=== PATIENT | female | born 1965 | race Asian ===

== ENCOUNTER 2024-05-07 05:02 | Emergency (ER) | payer OTHER, SELFPAY ==
[2024-05-07] VITALS (7 sets, daily range): BP systolic 102–148; BP diastolic 68–86; BMI 34.8
[2024-05-07 05:36] LABS: % Basophils 0.4 % (0-2); % Eosinophils 1.7 % (0-6); % Immature Granulocytes 0.5 % (0-0.5); % Lymphocytes 24.8 % (20.5-51.1); % Neutrophils 66.6 % (42.2-75.2); Absolute Eosinophils 0.2 10^3/uL (0-0.7); Absolute Immature Granulocytes 0.1 10^3/uL (0-0.05); Absolute Lymphocytes 2.5 10^3/uL (1.2-3.4); Absolute Monocytes 0.6 10^3/uL (0.1-0.6); Absolute Neutrophils 6.7 10^3/uL (1.4-6.5); Hematocrit 41.3 % (37.0-47.0); Hemoglobin 13.7 g/dL (12.0-16.0); Mean Corp Hgb Conc. 33.2 g/dL (33.0-37.0); Mean Corpuscular Hgb 25.1 pg (27.0-31.0); Mean Corpuscular Volume 75.8 fL (81.0-99.0); Mean Platelet Volume 11.4 fL (7.4-10.4); Nucleated Red Blood Cells % 0 %; Platelet Count 233 10^3/uL (130-400); Red Blood Cell Count 5.45 10^6/uL (4.20-5.40); Red Cell Dist. Width 14.6 % (11.5-14.5)
[2024-05-07 05:52] LABS: ALT (SGPT) 23 U/L (0-35); AST (SGOT) 22 U/L (14-36); Albumin 4.9 g/dl (3.5-5.0); Alkaline Phosphatase 94 U/L (38-126); Blood Urea Nitrogen 9 mg/dl (7-17); Calcium 10.6 mg/dl (8.4-10.2); Carbon Dioxide 27 mmol/L (22-30); Chloride 103 mmol/L (98-107); Estimated Creatinine Clearance 100 ml/min; Glucose 118 mg/dl (70-99); Sodium 144 mmol/L (135-145); Total Bilirubin 0.5 mg/dl (0.2-1.3); Total Protein 8.5 g/dl (6.3-8.2); eGFR > 60.00
[2024-05-07 06:03] LABS: Troponin I < 0.012 ng/ml
--- NOTE | 2024-05-07 06:21 | ED.GENMED ---
History of Present Illness
General
Chief Complaint: Chest Pain
Time Seen by Provider: 05/07/24 06:21
History of Present Illness
History of Present Illness:
TIME OF INITIAL ENCOUNTER: 6:20 AM
HPI:
Patient presents with an abnormal sensation of the left side of her chest. She cannot describe this anymore but also has a sensation of palpitations and 'racing heart'. She has an associated headache described as 'burning'. She has a history of
CAD with stents.
EXAM:
GENERAL: Well appearing in no distress
HEENT: Moist oral mucosa
CARDIOVASCULAR: No murmurs, normal heart rate, regular rhythm, very mild left-sided anterior chest wall tenderness
PULMONARY: No respiratory distress, breath sounds are clear and equal
ABDOMEN: Soft with no peritoneal signs, no tenderness
NEUROLOGIC: Excellent strength all extremities, no coordination deficits
PSYCHIATRIC: Appropriate mental status, normal insight and judgement
EXTREMITIES: Nontender, no edema, moves all extremities equally
SKIN: No rash, no lesions
NUMBER AND COMPLEXITY OF PROBLEMS ADDRESSED AT THE ENCOUNTER
� Chronic conditions affecting care: CAD, high blood pressure
� Acute Exacerbation and/or Progression of Chronic Illness: This is an acute problem
� Differential Diagnosis includes: Nonspecific palpitations, PACs, PVCs, ACS, chest wall pain
AMOUNT AND/OR COMPLEXITY OF DATA TO BE REVIEWED AND ANALYZED
� I performed an independent evaluation of and my interpretation is:
EKG: Sinus 66, left axis deviation, nonspecific ST abnormality, LAD
CT:
X-rays: Chest x-ray unremarkable
Laboratory Studies: Troponin less than 0.012, CBC unremarkable, chemistries relatively unremarkable
Other:
� Review of other/old records: The patient was seen here in 2020 with cervical strain
� Clinical information was obtained by an independent historian: None needed
� Prescriptions/Medications Considered but not given:
� Further testing considered but not performed:
RISK OF COMPLICATIONS AND/OR MORBIDITY OR MORTALITY OF PATIENT MANAGEMENT
� Social determinants of health affecting care: Lives at home
� Discussion with other providers:
� Escalation of care including admission/observation vs risk of discharge considered: The patient has some vague symptoms of the left side of her chest which is currently improved. She has some burning sensation of the head.
Will try Toradol for pain. Initial troponin and EKG unremarkable. She cannot clearly indicate if her symptoms were similar to prior.
ANY OTHER UPDATES:
10 AM: Second troponin also negative, chest x-ray unremarkable. Overall feels improved. No clear indication for admission to the hospital.
Past History
Past History
ED Past Medical History: HTN
Social History
Tobacco: Non-smoker
Personal:
Living: with family
Phy Exam
Physical Exam
Physical Exam:
See HPI
Scores
Heart Score for Chest Pain Patients
STEMI patient?: Not applicable
Course
Orders/Labs/Results
Orders:
Orders
05/07/24 05:08
Electrocardiogram (*1) Urgent
Reason for Study: Chest Pain
05/07/24 05:09
EKG- Treatment ONCE
05/07/24 05:22
Complete Blood Count/With Diff Urgent
Comprehensive Metabolic Panel Urgent
Troponin I Urgent
05/07/24 06:36
Ketorolac [Toradol] 15 mg IV NOW STA
05/07/24 06:38
CR Chest - 2 Views Urgent
Comment:
Reason For Exam: L pain
05/07/24 08:35
Troponin I Urgent
05/07/24 08:36
EKG [Electrocardiogram (*1)] Urgent
Reason for Study: Chest Pain
EKG- Treatment ONCE
Abnormal Lab Results
05/07/24
05:22
RBC 5.45 H 10^6/uL
(4.20-5.40)
MCV 75.8 L fL
(81.0-99.0)
MCH 25.1 L pg
(27.0-31.0)
RDW 14.6 H %
(11.5-14.5)
MPV 11.4 H fL
(7.4-10.4)
Abs Immat Gran (auto) 0.1 H 10^3/uL
(0-0.05)
Absolute Neuts (auto) 6.7 H 10^3/uL
(1.4-6.5)
Creatinine 0.5 L mg/dL
(0.6-1.0)
Glucose 118 H mg/dl
(70-99)
Calcium 10.6 H mg/dl
(8.4-10.2)
Total Protein 8.5 H g/dl
(6.3-8.2)
05/07/24 05:22
05/07/24 05:22
Vital Signs
Initial and Last Documented VS:
Initial Vital Signs
Temp Pulse Resp BP Pulse Ox
97.5 F 70 22 148/86 98
05/07/24 05:05 05/07/24 05:05 05/07/24 05:05 05/07/24 05:05 05/07/24 05:05
Last Documented Vital Signs
Temp Pulse Resp BP Pulse Ox
97.5 F 70 16 107/72 95
05/07/24 05:05 05/07/24 08:00 05/07/24 08:00 05/07/24 08:00 05/07/24 08:00
*Critical Care Note
Total Time (30-74mins, 75-104mins- exclusive of procedures): Not Applicable
ED Attending Note
-
Portions of this chart may have been created with voice recognition software.� Occasional wrong word or��sound alike� substitutions may have occurred due to the inherent limitations of voice recognition software.
Discharge Plan
Departure
Prescriptions:
No Action
amlodipine 10 MG tablet
10 mg PO DAILY
losartan 100 MG tablet
100 mg PO DAILY
cyclobenzaprine 10 MG tablet
10 mg PO TIDPRN PRN (Reason: neck pain) Qty: 13 0RF
Referrals:
TAHIR QUEZADA PA [Family Provider] -
Interventions
Interventions:
*Risk Screen - Suicide Last Done: 05/07/24 05:43
*General Assessment Last Done: 05/07/24 05:43
*Neglect/Abuse Screening Last Done: 05/07/24 05:43
*ED COVID-19 Vaccine History Last Done: 05/07/24 05:43
ED- Cardiac Assessment Last Done: 05/07/24 05:23
Discharge Date and Time
Print Language: GUAMANIAN
[2024-05-07] MEDS: TORADOL 15 MG IV (06:40)
[2024-05-07 09:07] LABS: Troponin I < 0.012 ng/ml
== END 2024-05-07 10:36 | disposition home or self-care (01) ==
LOC: EMR 05:02
PROVIDERS: Emergency Medicine; EMERGENCY PHYSICIAN Emergency Medicine; FAMILY PHYSICIAN Physician Assistant
DX: R07.89 Other chest pain (principal); I10 Essential (primary) hypertension; I25.10 Atherosclerotic heart disease of native coronary artery without angina pectoris; Z95.5 Presence of coronary angioplasty implant and graft
CPT/HCPCS: 99283; 96374; 71046; 80053; 84484; 85025; 93005

== ENCOUNTER 2024-12-25 00:29 | Emergency (ER) | payer OTHER, SELFPAY ==
[2024-12-25 00:35] VITALS: BP 145/87
[2024-12-25] MEDS: TYLENOL 1000 MG PO (00:52)
[2024-12-25 00:53] VITALS: BMI 30.4
[2024-12-25 00:57] VITALS: BP 153/93
[2024-12-25 02:48] VITALS: BP 120/83
--- NOTE | 2024-12-25 04:30 | DOWNTIME ---
Addendum entered by Korina Mrarufo RN 12/25/24 15:34:
Correction: Downtime was 12/25/2024 from 0100 to 12/25/2024 at 0415.
Original Note:
There was a [employer] Downtime on 12/24/2024 from 0100 to 12/25/2024 at 0415. Downtime documentation of patient's care, including medication administrations, has been reconciled in the electronic record per guidelines. Refer to the
patient's paper chart under the miscellaneous tab to see printed paper medication records and downtime forms.
[2024-12-25 05:08] LABS: ALT (SGPT) 19 U/L (0-35); AST (SGOT) 17 U/L (14-36); Albumin 4.6 g/dl (3.5-5.0); Alkaline Phosphatase 89 U/L (38-126); Blood Urea Nitrogen 10 mg/dl (7-17); Calcium 9.7 mg/dl (8.4-10.2); Carbon Dioxide 25 mmol/L (22-30); Chloride 110 mmol/L (98-107); Estimated Creatinine Clearance 107 ml/min; Glucose 101 mg/dl (70-99); Potassium 4.1 mmol/L (3.5-5.1); Sodium 144 mmol/L (135-145); Total Bilirubin 0.4 mg/dl (0.2-1.3); Total Protein 8.3 g/dl (6.3-8.2); Troponin I < 0.012 ng/ml; eGFR > 60.00
[2024-12-25 05:25] LABS: % Basophils 0.4 % (0-2); % Eosinophils 2.2 % (0-6); % Immature Granulocytes 0.1 % (0-0.5); % Lymphocytes 37.1 % (20.5-51.1); % Monocytes 7.3 % (1.7-9.3); % Neutrophils 52.9 % (42.2-75.2); Absolute Eosinophils 0.2 10^3/uL (0-0.7); Absolute Lymphocytes 2.5 10^3/uL (1.2-3.4); Absolute Monocytes 0.5 10^3/uL (0.1-0.6); Absolute Neutrophils 3.5 10^3/uL (1.4-6.5); Hematocrit 42.2 % (37.0-47.0); Hemoglobin 13.9 g/dL (12.0-16.0); Mean Corp Hgb Conc. 32.9 g/dL (33.0-37.0); Mean Corpuscular Hgb 25.8 pg (27.0-31.0); Mean Corpuscular Volume 78.4 fL (81.0-99.0); Mean Platelet Volume 10.3 fL (7.4-10.4); Nucleated Red Blood Cells % 0 %; Platelet Count 193 10^3/uL (130-400); Red Blood Cell Count 5.38 10^6/uL (4.20-5.40); Red Cell Dist. Width 13.7 % (11.5-14.5); White Blood Cell Count 6.7 10^3/uL (4.8-10.8)
[2024-12-25 05:26] LABS: Urine Albumin Negative (Neg - Trace); Urine Character Clear (Clear); Urine Color Straw; Urine Glucose Negative (Negative); Urine Ketone Negative (Negative); Urine Leukocyte Negative (Negative); Urine Nitrite Negative (Negative)
[2024-12-25 05:27] LABS: Urine Bilirubin Negative (Negative); Urine Occult Blood Negative (Negative); Urine Urobilinogen Negative (Neg - 1+)
--- NOTE | 2024-12-26 06:02 | ED.GENMED ---
History of Present Illness
General
Chief Complaint: Musculo-Skeletal Complaint
Source: patient and family
Exam Limitations: none
Time Seen by Provider: 12/25/24 00:45
Nursing documentation reviewed up to this point in time: agreed with
History of Present Illness
History of Present Illness:
59-year-old female with history as noted presents to the ER for evaluation of hypertension and various minor complaints. �Patient reports that her blood pressure has been elevated throughout the day 140s to 160s systolic. �She says this is the
primary reason she came to the emergency room. �She is on amlodipine 10 mg daily and has been on this for quite some time without any recent adjustments. �She says she has had some various aches and pains over the past 48 hours including some pain
in the left shoulder, occasional headache as well as some flank pain radiating towards the hip. �She says her symptoms are very mild right now and she is mainly concerned about her blood pressure. �She has not had any nausea, vomiting, abdominal
pain. �Denies any chest pain or shortness of breath. �She denies any urinary symptoms. �She denies any other acute complaints.
Past History
Past History
ED Past Medical History: HTN
Social History
Tobacco: Non-smoker
Personal:
Living: with family
Review of Systems
Review of Systems
All Other Systems: ROS reviewed and negative except as documented in HPI and ROS
Respiratory: Denies trouble breathing
Cardiac: Denies chest pain
ABD/GI: Denies abdominal pain, nausea, vomiting or diarrhea
: Reports flank pain; Denies dysuria or frequency
Musculoskeletal: Reports joint pain; Denies neck pain or back pain
Neurological: Reports headache; Denies dizzy, weakness or numbness
Phy Exam
Physical Exam
Physical Exam:
General: Awake, alert, nontoxic
Head: Normocephalic, atraumatic
Eyes: Conjunctiva normal, sclera anicteric
Throat: Airway intact, handling secretions
Neck: Trachea midline, supple without meningismus
Lungs: Clear to auscultation bilaterally, no wheezing, rales, rhonchi
Heart: Regular rate and rhythm, no murmurs, gallops, or rubs
Abd: Soft, non distended, nontender
Back: No reproducible tenderness in the back or flank
Neuro: No gross deficits
Extremities: No edema in extremities, equal pulses in all extremities
Scores
Heart Failure Risk
Heart Failure Risk Score: Not Applicable
Heart Score for Chest Pain Patients
STEMI patient?: Not applicable
Withdrawal Assessment of Alcohol
Withdrawal Assessment Completed?: Not applicable
Course
Orders/Labs/Results
Orders:
Orders
12/25/24 00:46
Acetaminophen [Tylenol] 1,000 mg PO NOW STA
Ketorolac [Toradol] 30 mg IM NOW STA
Lidocaine [Lidocaine 4% Patch] 1 patch TOPICAL ONCE ONE
Apply Lidocaine patch(s) to:: back
12/25/24 01:02
Electrocardiogram (*1) Urgent
Reason for Study: Chest Pain
EKG- Treatment ONCE
CR Chest - 2 Views Urgent
Comment:
Reason For Exam: chest pain
12/25/24 01:11
Complete Blood Count/With Diff Urgent
Comprehensive Metabolic Panel Urgent
Troponin I Urgent
Urinalysis Urgent
Abnormal Lab Results
12/25/24
01:11
MCV 78.4 L fL
(81.0-99.0)
MCH 25.8 L pg
(27.0-31.0)
MCHC 32.9 L g/dL
(33.0-37.0)
Chloride 110 H mmol/L
(98-107)
Creatinine 0.5 L mg/dL
(0.6-1.0)
Glucose 101 H mg/dl
(70-99)
Total Protein 8.3 H g/dl
(6.3-8.2)
12/25/24 01:11
12/25/24 01:11
Vital Signs
Initial and Last Documented VS:
Initial Vital Signs
Temp Pulse Resp BP Pulse Ox
36.9 C 80 16 145/87 98
12/25/24 00:35 12/25/24 00:35 12/25/24 00:35 12/25/24 00:35 12/25/24 00:35
Last Documented Vital Signs
Temp Pulse Resp BP Pulse Ox
36.9 C 82 18 120/83 99
12/25/24 00:35 12/25/24 02:09 12/25/24 02:09 12/25/24 02:48 12/25/24 01:15
MDM/Problems Addressed
Differential Diagnosis Includes:
Hypertension
MDM/Problems Addressed:
59-year-old female presents with hypertension despite compliance with her home amlodipine. �Her blood pressure is 150s to 160s here. �She has had various aches and pains as described with no other specific complaints. �Will plan to check basic
screening labs. �Will check cardiogram and troponin given her report of mild left shoulder pain. �Check urinalysis given her reported flank pain. �Abdomen nontender�no indication for emergent abdominal imaging. �Although she reports occasional
headache, denies at present and with reassuring neurologic assessment in my judgment there is no indication for emergent CT head. �Will monitor blood pressure here and reassess after the above. �Can likely be discharged with adjustment to her blood
pressure medication regimen and close primary care follow-up.
Labs reviewed: CBC unremarkable, CMP no clinically significant abnormalities�notably normal renal function. �Her troponin is undetectable. �Urinalysis bland. �Blood pressure remains elevated throughout 150s. �Plan to add lisinopril to her current
regimen. �Stable for discharge to follow-up with her primary doctor. �Patient comfortable with this plan. �All questions answered.
Chronic conditions affecting care: HTN
*Pulse Oximetry
SaO2: 99
Oxygen Mode of Delivery: Room air
Patient hypoxic: no (98%)
*EKG
Interpreted by ED Provider?: Yes
Heart Rate: 78
Rate: normal
Rhythm: sinus
[place]: normal axis
Interval: normal interval
QRS Pattern: normal QRS
Ischemia: no ischemia
*Critical Care Note
Total Time (30-74mins, 75-104mins- exclusive of procedures): Not Applicable
Data Reviewed
Source: patient and family
ED Attending Note
-
Portions of this chart may have been created with voice recognition software.� Occasional wrong word or��sound alike� substitutions may have occurred due to the inherent limitations of voice recognition software.
Discharge Plan
Departure
Patient Disposition: Home (Routine Discharge)
Patient with high blood pressure during this ER visit?: Yes
Discharge Problem:
Hypertension
Prescriptions:
No Action
amlodipine 10 MG tablet
10 mg PO DAILY
losartan 100 MG tablet
100 mg PO DAILY
cyclobenzaprine 10 MG tablet
10 mg PO TIDPRN PRN (Reason: neck pain) Qty: 13 0RF
Referrals:
TAHIR QUEZADA PA [Family Provider, Family Practice]
Interventions
Interventions:
*Risk Screen - Suicide Last Done: 12/25/24 00:35
*General Assessment Last Done: 12/25/24 00:45
*Neglect/Abuse Screening Last Done: 12/25/24 00:35
*ED- Fall Risk Assessment Last Done: 12/25/24 00:45
*ED COVID-19 Vaccine History Last Done: 12/25/24 00:45
*Nursing Disposition Last Done: 12/25/24 03:02
ED-Musculoskeletal Assessment Last Done: 12/25/24 00:53
Discharge Date and Time
Discharge Date/Time: 12/25/24 03:05
Print Language: ICELANDIC
== END 2024-12-25 03:05 | disposition home or self-care (01) ==
LOC: EMR 00:29
PROVIDERS: EMERGENCY PHYSICIAN Emergency Medicine; FAMILY PHYSICIAN Physician Assistant
DX: I10 Essential (primary) hypertension (principal); Z79.899 Other long term (current) drug therapy
CPT/HCPCS: 99283; 71046; 80053; 81003; 84484; 85025; 93005

== ENCOUNTER 2025-01-01 05:57 | Emergency (ER) | payer OTHER, SELFPAY ==
[2025-01-01] VITALS (10 sets, daily range): BP systolic 113–142; BP diastolic 76–89
--- NOTE | 2025-01-01 06:39 | ED.GENMED ---
History of Present Illness
General
Chief Complaint: Cardiac Symptoms
Source: patient
Exam Limitations: none
Time Seen by Provider: 01/01/25 06:30
History of Present Illness
History of Present Illness:
59yoF with a history of hypertension presenting for evaluation of palpitations. Symptoms woke her up around 3am this morning. She reports feeling like her heart is racing. She also was experiencing a tightness/burning sensation to her left
shoulder and left side of her head. Symptoms have improved but are still present. She feels slightly short of breath. She denies any chest pain, dizziness, syncope. Of note, she was seen in the ED 6 days ago for hypertension. EKG and troponin
were normal at that time. Patient reports having a heart procedure 3-4 years ago in which a stent was placed although she does not take a statin or aspirin. She follows with [facility].
Past History
Past History
ED Past Medical History: HTN
Social History
Tobacco: Non-smoker
Personal:
Living: with family
Phy Exam
General Physical Exam
General Presentation: well appearing and no apparent distress
General Skin: warm and dry
General Habitus: normal
General Mental: alert
ENT Exam
ENT Exam: normocephalic
Cardiovascular Exam
Cardiovascular Exam: regular rate/rhythm, no edema, no murmur and normal peripheral pulses
Pulmonary Exam
Pulmonary Exam: lungs clear, no respiratory distress, no rales, no crackles, no rhonchi and no wheezing
Neurological Exam
Neurological Exam: alert
[place] Coma Scale
Eye Opening: Spontaneous
Verbal Response: Oriented
Motor Response: Obeys Commands
GCS Total Score: 15
Skin Exam
Skin Exam: normal color and warm/dry
Psychiatric Exam
Psychiatric Exam: normal mood/affect
Course
Orders/Labs/Results
Orders:
Orders
01/01/25 06:12
EKG [Electrocardiogram (*1)] Urgent
Reason for Study: Palpitations
EKG- Treatment ONCE
01/01/25 06:48
Cardiac Monitoring- Treatment ONCE
CR Chest - 2 Views Urgent
Comment:
Reason For Exam: SOB
01/01/25 07:06
Complete Blood Count/With Diff Urgent
TSH Reflex To Free T4 Urgent
01/01/25 08:16
Comprehensive Metabolic Panel Routine
Magnesium Routine
Troponin I Routine
01/01/25 09:08
EKG- Treatment ONCE
01/01/25 10:15
Electrocardiogram (*1) Urgent
Reason for Study: Palpitations
01/01/25 10:29
Troponin I Urgent
Abnormal Lab Results
01/01/25 01/01/25
07:06 08:16
MCV 78.1 L fL
(81.0-99.0)
MCH 25.6 L pg
(27.0-31.0)
MCHC 32.8 L g/dL
(33.0-37.0)
MPV 11.0 H fL
(7.4-10.4)
Absolute Neuts (auto) 7.8 H 10^3/uL
(1.4-6.5)
Lymphocytes % 18.6 L %
(20.5-51.1)
Chloride 113 H mmol/L
(98-107)
Creatinine 0.5 L mg/dL
(0.6-1.0)
Glucose 123 H mg/dl
(70-99)
01/01/25 07:06
01/01/25 08:16
Vital Signs
Initial and Last Documented VS:
Initial Vital Signs
Temp Pulse Resp BP Pulse Ox
98.5 F 83 18 141/89 98
01/01/25 06:09 01/01/25 06:09 01/01/25 06:09 01/01/25 06:09 01/01/25 06:09
Last Documented Vital Signs
Temp Pulse Resp BP Pulse Ox
98.5 F 82 22 117/77 97
01/01/25 06:09 01/01/25 12:00 01/01/25 11:24 01/01/25 12:00 01/01/25 12:00
MDM/Problems Addressed
Differential Diagnosis Includes:
59yoF here with palpitations and L shoulder burning/tightness that began at 3am. Symptoms now improved. HR in the 80s during exam. She is well appearing in no distress. Exam is reassuring. Differential diagnosis includes but is not limited to: ACS,
arrhythmia, thyroid dysfunction, musculoskeletal
Initial ED plan: Check cardiac labs, TSH, magnesium, EKG, and CXR.
*Pulse Oximetry
SaO2: 98
Oxygen Mode of Delivery: Room air
Patient hypoxic: no (97%)
*EKG
Interpreted by ED Provider?: Yes
EKG Intrepretation Date: 01/01/25
Heart Rate: 90
Rate: normal
Rhythm: sinus
[place]: normal axis
Interval: normal interval
QRS Pattern: normal QRS
Ischemia: no ischemia
*Critical Care Note
Total Time (30-74mins, 75-104mins- exclusive of procedures): Not Applicable
Update Note
Update Note:
Labs overall unremarkable including normal potassium, magnesium, and TSH. EKG shows NSR without ischemic changes or ectopy. Troponin WNL. CXR is clear. Repeat troponin/EKG unchanged. No telemetry events throughout ED stay. No indication for
hospitalization. She was instructed to f/u with her seo engineer and ED return precautions reviewed. Patient discharged in stable condition.
ED Attending Note
-
Portions of this chart may have been created with voice recognition software.� Occasional wrong word or��sound alike� substitutions may have occurred due to the inherent limitations of voice recognition software.
Discharge Plan
Departure
Patient Disposition: Home (Routine Discharge)
Date of Disposition: 01/01/25
Time of Disposition: 11:33
Patient with high blood pressure during this ER visit?: No
Discharge Problem:
Palpitations, Left arm pain
Instructions: Palpitations - ED discharge instructions
Prescriptions:
No Action
amlodipine 10 MG tablet
10 mg PO DAILY
losartan 100 MG tablet
100 mg PO DAILY
cyclobenzaprine 10 MG tablet
10 mg PO TIDPRN PRN (Reason: neck pain) Qty: 13 0RF
Referrals:
UNKNOWN - PT DOES,NOT KNOW [Family Provider]
Activity Restrictions/Additional Instructions:
Please call your seo engineer today and schedule a follow-up appointment. Return to the ER with any new or worsening symptoms.
Interventions
Interventions:
*Risk Screen - Suicide Last Done: 01/01/25 06:09
*General Assessment Last Done: 01/01/25 06:09
*Neglect/Abuse Screening Last Done: 01/01/25 06:09
*ED COVID-19 Vaccine History Last Done: 01/01/25 06:09
*Nursing Disposition Last Done: 01/01/25 12:12
ED- Pulmonary Assessment Last Done: 01/01/25 07:17
ED- Cardiac Assessment Last Done: 01/01/25 07:17
Discharge Date and Time
Discharge Date/Time: 01/01/25 12:13
Print Language: POLISH
[2025-01-01 07:12] LABS: % Basophils 0.2 % (0-2); % Eosinophils 1.5 % (0-6); % Immature Granulocytes 0.4 % (0-0.5); % Lymphocytes 18.6 % (20.5-51.1); % Neutrophils 73.3 % (42.2-75.2); Absolute Eosinophils 0.2 10^3/uL (0-0.7); Absolute Monocytes 0.6 10^3/uL (0.1-0.6); Absolute Neutrophils 7.8 10^3/uL (1.4-6.5); Hematocrit 40.3 % (37.0-47.0); Hemoglobin 13.2 g/dL (12.0-16.0); Mean Corp Hgb Conc. 32.8 g/dL (33.0-37.0); Mean Corpuscular Hgb 25.6 pg (27.0-31.0); Mean Corpuscular Volume 78.1 fL (81.0-99.0); Nucleated Red Blood Cells % 0 %; Platelet Count 209 10^3/uL (130-400); Red Blood Cell Count 5.16 10^6/uL (4.20-5.40); Red Cell Dist. Width 13.7 % (11.5-14.5); White Blood Cell Count 10.6 10^3/uL (4.8-10.8)
[2025-01-01 08:18] LABS: TSH Reflex To Free T4 2.18 uIU/ml (0.47-4.68)
[2025-01-01 08:43] LABS: ALT (SGPT) 19 U/L (0-35); AST (SGOT) 18 U/L (14-36); Albumin 4.4 g/dl (3.5-5.0); Alkaline Phosphatase 94 U/L (38-126); Blood Urea Nitrogen 17 mg/dl (7-17); Calcium 9.4 mg/dl (8.4-10.2); Carbon Dioxide 22 mmol/L (22-30); Chloride 113 mmol/L (98-107); Glucose 123 mg/dl (70-99); Magnesium 1.9 mg/dl (1.6-2.3); Sodium 144 mmol/L (135-145); Total Bilirubin 0.4 mg/dl (0.2-1.3); eGFR > 60.00
[2025-01-01 08:55] LABS: Troponin I < 0.012 ng/ml
[2025-01-01 11:01] LABS: Troponin I < 0.012 ng/ml
== END 2025-01-01 12:13 | disposition home or self-care (01) ==
LOC: EMR 05:57
PROVIDERS: Physician Assistant; EMERGENCY PHYSICIAN Emergency Medicine
DX: R00.2 Palpitations (principal); M79.602 Pain in left arm; I10 Essential (primary) hypertension; Z95.5 Presence of coronary angioplasty implant and graft
CPT/HCPCS: 99285; 71046; 80053; 83735; 84443; 84484; 85025; 93005